=== PATIENT | female | born 1935 | race Asian ===

== ENCOUNTER → 2022-02-19 | Day surgery (SDC) | payer MEDICARE, OTHER ==
[2022-02-16 12:30] LABS: Basophils # (auto) 0 10 ^3/uL (0-0.2); Basophils % (auto) 0.9 % (0.0-2.0); Eosinophils # (auto) 0.1 10 ^3/uL (0-0.8); Eosinophils % (auto) 3.1 % (0.0-7.0); Hematocrit 33.5 % (36.0-46.0); Hemoglobin 10.9 g/dL (12.2-16.2); Lymphocytes % (auto) 52.9 % (10.0-50.0); Mean Corpuscular Hemoglobin 28.2 pg (28.0-32.0); Mean Corpuscular Hgb Conc. 32.4 g/dL (32.0-36.0); Mean Corpuscular Volume 86.9 fL (80.0-100.0); Monocytes # (auto) 0.2 10 ^3/uL (0-1.3); Monocytes % (auto) 5.3 % (0.0-12.0); Neutrophils # (auto) 1.4 10 ^3/uL (1.6-8.6); Neutrophils % (auto) 37.8 % (37.0-80.0); Red Blood Cells 3.86 10^6/uL (4.0-5.20); White Blood Cell 3.8 10^3/uL (4.4-10.8)
[2022-02-16 12:40] LABS: INR 0.9 (0.9-1.15); Partial Thromboplastin Time 25.2 sec (23.6-33.0)
[2022-02-16 13:42] LABS: Albumin 3.8 g/dL (3.4-5.0); Calcium 8.8 mg/dL (8.5-10.1)
[2022-02-16 13:44] LABS: BUN/Creatinine Ratio 23.3
[2022-02-16 13:46] LABS: Bilirubin, Total 0.2 mg/dL (0.2-1.0); Total Protein 7.3 g/dL (6.4-8.2)
[~2022-02-19] VITALS: Ht 152.4 cm; Wt 49.4 kg
[~2022-02-19] MED LIST: AML5T PO; GLIM2TAB33 PO; LIDOCAINE VISCOUS 2% 15ML UD ONE; LISI20TA28 PO; METF-370 PO; diphenhdrAMINE HCL 50 MG/1 ML VL ONE
[2022-02-19] MEDS: fentaNYL CITRATE 100 MCG/2 ML VL ONE ×3 (10:08→10:20)
[2022-02-19] MEDS: MIDAZOLAM HCL 5 MG/ML-1ML VIAL ONE ×3 (10:08→12:59)
[2022-02-19 12:00] VITALS: BP 166/75
== END | disposition home or self-care (01) ==
LOC: GI 09:33
PROVIDERS: ATTEND Internal Medicine Gastroenterology
DX: D64.9 Anemia, unspecified (principal); K29.50 Unspecified chronic gastritis without bleeding; B96.81 Helicobacter pylori [H. pylori] as the cause of diseases classified elsewhere; K64.8 Other hemorrhoids; K63.89 Other specified diseases of intestine; I10 Essential (primary) hypertension; E11.9 Type 2 diabetes mellitus without complications; E78.5 Hyperlipidemia, unspecified; F32.A Depression, unspecified; Z90.710 Acquired absence of both cervix and uterus; Z90.49 Acquired absence of other specified parts of digestive tract; Z98.891 History of uterine scar from previous surgery; Z20.822 Contact with and (suspected) exposure to COVID-19
CPT/HCPCS: 36415; 43239; 45378; 80053; 85025; 85610; 85730; 88305; 88342; J1200; J2250; J3010; J7030; U0003; 99153; G0500